=== PATIENT | male | born 1980 | race Two or more races ===

== ENCOUNTER 2024-01-06 11:47 | Outpatient (CLI) | payer OTHER ==
[~2024-01-06 11:47] MED LIST: SKELAXIN800 MG PO
== END 2024-01-06 12:02 | disposition home or self-care (01) ==
LOC: MRI 11:47
PROVIDERS: ATTEND General Practice
DX: M62.830 Muscle spasm of back (principal); M54.2 Cervicalgia; M47.892 Other spondylosis, cervical region
CPT/HCPCS: 72141